=== PATIENT | female | born 1945 | race Caucasian/White ===

== ENCOUNTER 2020-12-14 08:38 | Inpatient (IN) ==
[2020-12-14] MEDS ORDERED: PROCHLORPERAZINE 10 MG/2 ML VIAL IV ONE (08:51)
[2020-12-14] MEDS ORDERED: 0.9 % SODIUM CHLORIDE 1,000 ML IV ONE (08:51)
[2020-12-14] MEDS ORDERED: diphenhydrAMINE 50 MG/ML VIAL IV ONE (08:51)
--- NOTE | 2020-12-14 08:56 | Emergency Department Note ---
Abdominal Pain HPI General Chief Complaint: Abdominal Pain Stated Complaint: Abd pain Time Seen by Provider: 12/14/20 08:41 Source: patient, family, RN notes reviewed and old records reviewed Mode of arrival: ambulatory Limitations: no limitations History of Present Illness HPI Narrative: Narrative: 75-year-old female complains of moderately severe pain starting night prior to arrival. Patient was seen the day prior to arrival with diagnosis of chest pain and a new spinal mass also known. Last night started having diffuse upper abdominal cramping with nausea and vomiting severe throughout the course of the day. No hematemesis coffee-ground emesis no bright red blood per rectum black tarry stools or diarrhea no urinary complaints. MD Complaint: abdominal pain Onset (ago): day(s) (1) Consistency: constant Location: LUQ and RUQ Severity: severe Quality: cramping Radiation: back Migration to: no migration Improves with: vomiting Worsens with: movement Context: other (Seen day prior to arrival diagnosed with chest pain and mass also noted to have a UTI.) Associated symptoms: Reports nausea, vomiting and chills; Denies diarrhea, fever, constipation, dysuria, hematemesis, hematochezia, melena, hematuria, anorexia and syncope Related Data Home Medications Medication Instructions Recorded Confirmed florify probiotic 1 cap PO QDAY 02/13/17 11/13/20 fluticasone propionate 50 1 spray INTRANASAL ONCE PRN 02/13/17 11/13/20 mcg/actuation nasal spray,suspension omega-3 fatty acids 1,000 mg 2,000 mg PO QDAY 02/13/17 11/13/20 capsule acetaminophen 650 mg 650 mg PO Q12H 10/21/19 11/13/20 tablet,extended release Previous Rx's Medication Instructions Recorded buspirone 5 mg tablet 5 mg PO BID PRN #60 tab 04/26/20 diphenoxylate-atropine 2.5 2 tab PO QDAY PRN #90 tab 07/31/20 mg-0.025 mg tablet nitrofurantoin macrocrystal 100 mg 100 mg PO BID #14 cap 11/13/20 capsule rosuvastatin 5 mg tablet 5 mg PO QDAY #30 tab 11/13/20 fenofibrate 54 mg tablet 54 mg PO QDAY #90 tab 11/30/20 levocetirizine 5 mg tablet 5 mg PO QDAY PRN #90 tab 11/30/20 omeprazole 40 mg capsule,delayed 40 mg PO QDAY #30 cap 11/30/20 release gabapentin 300 mg PO QDAY #14 cap 12/13/20 hydrocodone-acetaminophen 1 tab PO TID PRN #10 tab 12/13/20 Allergies Allergy/AdvReac Type Severity Reaction Status Date / Time butorphanol [From Stadol] Allergy Unknown Rash Verified 12/14/20 08:38 meperidine [From Demerol] Allergy Unknown Rash, Verified 12/14/20 08:38 vomiting Sulfa (Sulfonamide Allergy Unknown Rash Verified 12/14/20 08:38 Antibiotics) sulfamethoxazole Allergy Unknown Rash Verified 12/14/20 08:38 [From Septra] trimethoprim [From Septra] Allergy Unknown Rash Verified 12/14/20 08:38 Review of Systems ROS ROS Narrative: Narrative: All systems ED: reviewed and negative except as stated. [facility] Narrative Patient History Narrative: Narrative: Medical/Surgical/Family History All Active Problems (Updated 12/14/20 @ 11:38 by Moise Hoover MD) Chest pain (Acute) Mass of spine (Acute) Acute cholecystitis (Acute) Anemia (Acute) Hair loss (Acute) Close exposure to COVID-19 virus (Acute) Cough (Acute) Medicare annual wellness visit, initial (Acute) Lentigines (Chronic) Melanocytic nevus of trunk (Chronic) Hemangioma (Chronic) Seborrheic keratosis (Chronic) History of tobacco abuse (Chronic) Esophageal pain (Chronic ~2014) Diverticulitis (Chronic ~2015) Diarrhea (Chronic) Stomach cancer (Chronic ~1981) Joint pain (Chronic ~1981) Hyperlipidemia (Chronic ~2006) Hypertension, essential (Chronic) Whooping cough (Chronic) Bronchitis (Chronic) Arthritis (Chronic ~1981) Acid reflux (Chronic ~1996) Medical History Acid reflux (~1996) Anemia Arthritis (~1981) Bronchitis Close exposure to COVID-19 virus Cough Diarrhea Diverticulitis (~2015) Esophageal pain (~2014) Hair loss Hemangioma History of tobacco abuse Hyperlipidemia (~2006) Hypertension, essential Joint pain (~1981) Lentigines Medicare annual wellness visit, initial Melanocytic nevus of trunk Seborrheic keratosis Stomach cancer (~1981) Whooping cough Surgical History H/O colonoscopy 07/2015 H/O Spinal surgery (~1986) 1986 due to ruptured disc H/O: hysterectomy (~1994) 1994 Hx of adenoidectomy (~195) Hx of tonsillectomy (~1949) 1950 Family History Mother Arthritis Grandmother Arthritis Cancer Heart attack Family/Other Diabetes Uncles Grandmother Diabetes Maternal Grandmother Diabetes Paternal Grandfather Heart attack Maternal Grandfather Heart attack Paternal Social History Smoking Status: Former smoker Alcohol Intake Frequency: 0-2 drinks per day Substance Use: does not use Exam Narrative Narrative: Narrative: General Limitations: no limitations General appearance: Present alert, in distress and tearful Head Head: Present atraumatic and normocephalic Eye Eye: Present normal appearance, PERRL and EOMI ENT ENT: Present normal exam and mucous membranes moist Neck Neck: Present normal inspection and full ROM Chest Chest: Present normal inspection; Absent tenderness Respiratory Respiratory: Present normal lung sounds bilaterally; Absent respiratory distress Cardiovascular Cardiovascular: Present regular rate and normal rhythm; Absent systolic murmur Adbominal Abdominal: Present soft, distention, tenderness and hypoactive bowel sounds; Absent guarding, rebound, rigidity, trauma, Conte's sign, tenderness at McBurney's Point, ascites, mass, bruit, pulsatile mass and hernia Extremities Extremities: Present normal inspection and full ROM; Absent tenderness, pedal edema and pretibial edema Back Back: Present normal inspection; Absent CVA tenderness (R) and CVA tenderness (L) Neurological Neurological: Present alert and oriented X3 Psychiatric Psychiatric: Present normal affect and normal mood Skin Skin: Present warm (WNL); Absent rash Course Vital Signs Vital signs: Vital Signs Temperature 98.1 F 12/14/20 08:38 Pulse Rate 98 H 12/14/20 08:38 Respiratory Rate 22 12/14/20 08:38 Blood Pressure 122/94 12/14/20 08:38 Pulse Oximetry (%) 98 12/14/20 08:38 Temperature 98.1 F 12/14/20 08:38 Pulse Rate 97 H 12/14/20 10:23 Respiratory Rate 22 12/14/20 08:38 Blood Pressure 130/77 12/14/20 10:23 Pulse Oximetry (%) 89 L 12/14/20 10:23 [facility] MDM Narrative Medical decision making narrative: Narrative: 75-year-old female with acute onset of abdominal pain night prior to arrival with an elevated white count at 19.6 CT scan shows acute cholecystitis. Discussed patient with Dr. Jose Luis Billy of general surgery who graciously agreed to evaluate patient in the emergency department. Patient received IV fluids IV Zosyn and pain management here in the emergency department. Differential Diagnosis Differential Diagnosis: Cholecystitis pyelonephritis small bowel obstruction and perforation ischem Medical Records Medical records reviewed: Yes I reviewed the patient's medical records. Lab Data Lab results reviewed: Yes I reviewed the patient's lab results. Result diagrams: 12/14/20 08:51 12/14/20 08:51 Labs: Lab Results 12/14/20 12/14/20 Range/Units 08:51 08:51 WBC 19.6 H (4.5-11.0) K/mcL RBC 4.62 (3.59-5.38) M/mcL Hgb 13.3 (11.2-15.7) g/dL Hct 39.8 (34.1-44.9) % MCV 86.1 (80.0-100.0) fL MCH 28.8 (26.0-34.0) pg MCHC 33.4 (31.0-36.0) g/dL RDW 14.4 (11.5-14.5) % Plt Count 225 (140-440) K/mcL MPV 11.6 H (7.4-10.4) fL Neut % (Auto) 91.5 H (38.0-78.0) % Lymph % (Auto) 4.0 L (15.5-49.0) % [place] % (Auto) 4.3 (1.0-12.0) % Eos % (Auto) 0 (0.0-7.0) % Baso % (Auto) 0.2 (0.0-2.0) % Lymph # (Auto) 0.79 L (1.50-4.80) K/mcL [place] # (Auto) 0.84 (0.10-0.90) K/mcL Eos # (Auto) 0 (0.00-0.70) K/mcL Baso # (Auto) 0.04 (0.00-0.30) K/mcL Absolute Neutrophils 17.89 H (1.80-8.00) K/mcL Sodium 135 (133-145) mmol/L Potassium 3.4 (3.3-5.1) mmol/L Chloride 95 L (96-108) mmol/L Carbon Dioxide 25 (22-30) mmol/L Anion Gap 15.0 (8.0-16.0) BUN 23 (8-23) mg/dL Creatinine 0.8 (0.6-1.1) mg/dL GFR Calculation 71 Glucose 146 H (70-105) mg/dL Calcium 9.3 (8.6-10.4) mg/dL Total Bilirubin 0.7 (0.1-1.0) mg/dL AST 140 H (<32) U/L ALT 128 H (<40) U/L Alkaline Phosphatase 108 (39-117) U/L Total Protein 7.7 (5.9-8.4) gm/dL Albumin 4.4 (3.2-5.2) gm/dL Globulin 3.3 (2.2-3.7) gm/dL Albumin/Globulin Ratio 1.3 (1.0-2.3) Lipase 26 (7-60) U/L Radiology Data Radiology results reviewed: Yes I reviewed the patient's radiology results. Radiology results narrative: Abdominal CT IMPRESSION: Acute cholecystitis New onset atelectasis/pneumonia in both lung bases Dr. Hoover was called with the report Interpreted and Authenticated by: Meir Loyd 12/14/20 EKG Data EKG #1: EKG attestation: Yes I reviewed and interpreted this EKG. and Yes There are no EKG findings of acute coronary syndrome EKG shows normal: sinus rhythm Rate: normal (99) Rhythm: NSR [place]/QRS: LAHB/LAFB Q waves: III and aVF Ectopy: PVC Interpretation: nonspecific ST-T wave changes Pulse Oximetry Data Pulse Ox %: 98 Interpretation: 98% on room air within normal limits Discharge Plan Patient/Caregiver Discharge Instructions Pt seen by FEATHER SAWYER/PA only: No Clinical Impression: Acute cholecystitis Patient Disposition: Xfer As Inpt ([facility]) Condition: Fair Follow up with: Julia North DO [Primary Care Provider] - Prescriptions: No Action diphenoxylate-atropine 2.5-0.025 mg tablet 2 tab PO QDAY PRN (Reason: diarrhea) Qty: 90 RF: 3 rosuvastatin [Crestor] 5 mg tablet 5 mg PO QDAY Qty: 30 RF: 2 levocetirizine 5 mg tablet 5 mg PO QDAY PRN (Reason: allergy symptoms) Qty: 90 RF: 1 omeprazole 40 mg capsule,delayed release(DR/EC) 40 mg PO QDAY Qty: 30 RF: 0 fenofibrate 54 mg tablet 54 mg PO QDAY Qty: 90 RF: 1 acetaminophen 650 mg tablet extended release 650 mg PO Q12H RF: 0 fluticasone propionate [Allergy Relief (fluticasone)] 50 mcg/actuation spray,suspension 1 spray INTRANASAL ONCE PRNRF: 0 omega-3 fatty acids [Fish Oil Concentrate] 1,000 mg capsule 2,000 mg PO QDAY RF: 0 florify probiotic 1 cap PO QDAY RF: 0 buspirone 5 mg tablet 5 mg PO BID PRN (Reason: anxiety) Qty: 60 RF: 4 nitrofurantoin macrocrystal 100 mg capsule 100 mg PO BID Qty: 14 RF: 0 gabapentin 300 mg capsule 300 mg PO QDAY Qty: 14 RF: 0 hydrocodone-acetaminophen 5-325 mg tablet 1 tab PO TID PRN (Reason: pain) Qty: 10 RF: 0
[2020-12-14] MEDS: HYDROmorphone 0.5 MG/0.5 ML SYRINGE IV PRN ×3 (09:05→12:45)
[2020-12-14 10:03] LABS: Basophils # (Auto) 0.04 K/mcL (0.00-0.30); Basophils % (Auto) 0.2 % (0.0-2.0); Eosinophils # (Auto) 0 K/mcL (0.00-0.70); Eosinophils % (Auto) 0 % (0.0-7.0); Hematocrit 39.8 % (34.1-44.9); Hemoglobin 13.3 g/dL (11.2-15.7); Lymphocytes # (Auto) 0.79 K/mcL (1.50-4.80); Mean Cell Volume 86.1 fL (80.0-100.0); Mean Corpuscular HGB Conc 33.4 g/dL (31.0-36.0); Mean Platelet Volume 11.6 fL (7.4-10.4); Monocytes # (Auto) 0.84 K/mcL (0.10-0.90); Monocytes % (Auto) 4.3 % (1.0-12.0); Neutrophils % (Auto) 91.5 % (38.0-78.0); Platelet Count 225 K/mcL (140-440); RBC 4.62 M/mcL (3.59-5.38); Red Cell Distribution Width 14.4 % (11.5-14.5); WBC 19.6 K/mcL (4.5-11.0)
[2020-12-14 10:17] LABS: ALT/SGPT 128 U/L (<40); AST/SGOT 140 U/L (<32); Albumin 4.4 gm/dL (3.2-5.2); Albumin/Globulin Ratio 1.3 (1.0-2.3); Alkaline Phosphatase 108 U/L (39-117); Bilirubin,Total 0.7 mg/dL (0.1-1.0); Blood Urea Nitrogen 23 mg/dL (8-23); Calcium 9.3 mg/dL (8.6-10.4); Carbon Dioxide 25 mmol/L (22-30); Chloride 95 mmol/L (96-108); Globulin 3.3 gm/dL (2.2-3.7); Glomerular Filtration Rate 71; Glucose 146 mg/dL (70-105)
--- NOTE | 2020-12-14 10:45 | EKG ---
[facility] Test Date: 2020-12-14 Pat Name: Evonne Viera Department: ED Room: Gender: Female Manufacturing Technologist: CS : 1945 Requested By: Moise Hoover Order Number: [id number] Reading MD: De Howard Measurements Intervals [place] Rate: 99 P: 45 KS: 172 QRS: -41 QRSD: 98 T: 14 QT: 372 QTc: 478 Interpretive Statements SINUS RHYTHM VENTRICULAR PREMATURE COMPLEX LEFT ANTERIOR FASCICULAR BLOCK BORDERLINE T WAVE ABNORMALITIES Unchanged from prior Electronically Signed On 12-14-2020 10:45:03 PDT by De Howard /store/M0/[id number]/ecg/[id number].pdf
[2020-12-14] MEDS ORDERED: PHENYLephrine 1 MG/10 ML SYRINGE (ANEST) ONE (11:33)
[2020-12-14] MEDS ORDERED: POTASSIUM CHLORIDE 40 MEQ/100 ML BAG IV ONE (11:33)
[2020-12-14] MEDS ORDERED: ONDANSETRON 4 MG/2 ML VIAL ONE (11:33)
[2020-12-14] MEDS ORDERED: ROCURONIUM 10 MG/ML ML IV ONE (11:33)
[2020-12-14] MEDS ORDERED: LIDOCAINE HCL/PF 100 MG/5 ML SYRINGE IV ONE (11:33)
[2020-12-14] MEDS ORDERED: fentaNYL 250 MCG/5 ML VIAL IV ONE (11:33)
[2020-12-14] MEDS ORDERED: PIPERACILLIN SODIUM/TAZOBACTAM 3.375 GM in DEXTROSE 5% IN WATER 50 ML IV ONE (11:33)
[2020-12-14] MEDS ORDERED: MAGNESIUM SULFATE 2 GM/50 ML BAG IV ONE (11:33)
[2020-12-14] MEDS ORDERED: KETAMINE 50 MG/ML Syringe (ANEST) IV ONE (11:33)
[2020-12-14] MEDS ORDERED: SUCCINYLCHOLINE 20 MG/ML ML IV ONE (11:33)
[2020-12-14] MEDS ORDERED: PROPOFOL 200 MG/20 ML VIAL IV ONE (11:33)
[2020-12-14] MEDS ORDERED: GLYCOPYRROLATE 0.2 MG/ML VIAL IV ONE (11:33)
[2020-12-14] MEDS ORDERED: DEXAMETHASONE 10 MG/ML VIAL ONE (11:33)
--- NOTE | 2020-12-14 11:35 | Cat Scan Report ---
History: Upper abdominal pain TECHNIQUE: The abdomen was imaged following oral but no intravenous contrast scanning from the diaphragm through the symphysis pubis. Sagittal and coronal reformats were created. The radiation exposure was limited using dose reduction technology. There are patchy infiltrates in both lung bases and inferiorly in the right middle lobe. These have developed since yesterday's chest CT. This may be a combination of pneumonia and atelectasis. Moderate size hiatus hernia is again seen. This remains stable. The liver and spleen are normal size and homogeneous. The gallbladder is mildly distended. The wall does become mildly thickened and inflamed and there stranding of the adjacent fat. The wall measures up to 4 mm. Posteriorly there is a noncalcified stone which is roughly 5 mm in size. The intra and extrahepatic bile ducts are normal in caliber. The inflamed gallbladder is compressing the second portion of the duodenum. The pancreas is normal without evidence for mass or inflammation. The spleen, adrenals and kidneys are normal. There is no kidney stone or evidence of pyelonephritis. Oral contrast has passed through normal stomach and duodenum and jejunum to the mid ileum without obstruction. There is no evidence of inflammatory bowel disease or obstruction. Numerous diverticula are present in the sigmoid colon. There is no evidence of acute diverticulitis. No appendicitis is present. No mass, abscess or ascites are present in the abdomen or pelvis. The uterus and ovaries have been removed. IMPRESSION: Acute cholecystitis New onset atelectasis/pneumonia in both lung bases Dr. Hoover was called with the report Interpreted and Authenticated by: Meir Loyd 12/14/20
--- NOTE | 2020-12-14 13:34 | General Surg History&Physical ---
HPI History of Present Illness Patient information: Note initiated : 12/14/20 at 1:30 pm Service Date, if different from initiated Date: [] Patient: Evonne Viera a 75 y/o F admitted on for Abdominal Pain . Chief Complaint: [] Chief complaint: Acute cholecystitis with cholelithiasis; basilar atelectasis with pneumonit History of present illness: Ms. Viera is a 75 year old F admitted with acute onset of cholecystitis with early sepsis. The patient presented to the emergency room on the evening of 13 December with complaint of left chest and back pain with radiation through to her neck. She also had shortness of breath with nausea and diaphoresis. On evaluation her chest exam and abdominal exam was interpreted as normal. Work-up for acute coronary syndrome was negative. CTA for pulmonary embolus was negative. Her gallbladder was reportedly normal on that evaluation. The patient was discharged home but developed worsening abdominal pain with nausea and vomiting. Her pain was in bilateral upper quadrants worse in the epigastrium and right upper quadrant. She returned to the emergency room with findings of tenderness in the right upper quadrant and epigastrium. Her white blood count is 19,600. Chest x-ray shows bilateral atelectasis with early bilateral basilar pneumonitis. CT shows a distended gallbladder with thickened cordero with pericholecystic fluid and tissue stranding with small dependent gallstones. LFTs shows mild elevation of SGOT and SGPT. Lipase is normal. Alkaline phosphatase and bilirubin are normal. Patient has acute cholecystitis with cholelithiasis with secondary basilar atelectasis and early basilar infiltrates due to pulmonary splinting. She is admitted and will be treated with antibiotics pulmonary toilet hydration with plans for cholecystectomy in the morning. Review of Systems All systems: reviewed and no additional remarkable complaints except as stated PFSH PFS All Active Problems (Updated 12/14/20 @ 13:40 by Ayana Billy MD) Pneumonitis (Acute) Mild bibasilar atelectasis (Acute) Cholecystitis, acute with cholelithiasis (Acute) Chest pain (Acute) Mass of spine (Acute) Acute cholecystitis (Acute) Anemia (Acute) Hair loss (Acute) Close exposure to COVID-19 virus (Acute) Cough (Acute) Medicare annual wellness visit, initial (Acute) Lentigines (Chronic) Melanocytic nevus of trunk (Chronic) Hemangioma (Chronic) Seborrheic keratosis (Chronic) History of tobacco abuse (Chronic) Esophageal pain (Chronic ~2014) Diverticulitis (Chronic ~2015) Diarrhea (Chronic) Stomach cancer (Chronic ~1981) Joint pain (Chronic ~1981) Hyperlipidemia (Chronic ~2006) Hypertension, essential (Chronic) Whooping cough (Chronic) Bronchitis (Chronic) Arthritis (Chronic ~1981) Acid reflux (Chronic ~1996) Medical History Acid reflux (~1996) Anemia Arthritis (~1981) Bronchitis Close exposure to COVID-19 virus Cough Diarrhea Diverticulitis (~2015) Esophageal pain (~2014) Hair loss Hemangioma History of tobacco abuse Hyperlipidemia (~2006) Hypertension, essential Joint pain (~1981) Lentigines Medicare annual wellness visit, initial Melanocytic nevus of trunk Seborrheic keratosis Stomach cancer (~1981) Whooping cough Surgical History H/O colonoscopy 07/2015 H/O Spinal surgery (~1986) 1986 due to ruptured disc H/O: hysterectomy (~1994) 1994 Hx of adenoidectomy (~1951) Hx of tonsillectomy (~1949) 1949 Family History Mother Arthritis Grandmother Arthritis Cancer Heart attack Family/Other Diabetes Uncles Grandmother Diabetes Maternal Grandmother Diabetes Paternal Grandfather Heart attack Maternal Grandfather Heart attack Paternal Social History marital status: other: Children-4 smoking status: Never smoker alcohol intake frequency: 0-2 drinks per day substance use type: does not use MEDS/ALLERGIES Home Medications and Allergies Home Medications Medication Instructions Recorded Confirmed Type florify probiotic 1 cap PO QDAY 02/13/17 11/13/20 History fluticasone propionate 50 1 spray INTRANASAL ONCE PRN 02/13/17 11/13/20 History mcg/actuation nasal spray,suspension omega-3 fatty acids 1,000 mg 2,000 mg PO QDAY 02/13/17 11/13/20 History capsule acetaminophen 650 mg 650 mg PO Q12H 10/21/19 11/13/20 History tablet,extended release buspirone 5 mg tablet 5 mg PO BID PRN #60 tab 04/26/20 11/13/20 Rx diphenoxylate-atropine 2.5 2 tab PO QDAY PRN #90 tab 07/31/20 11/13/20 Rx mg-0.025 mg tablet nitrofurantoin macrocrystal 100 mg 100 mg PO BID #14 cap 11/13/20 11/13/20 Rx capsule rosuvastatin 5 mg tablet 5 mg PO QDAY #30 tab 11/13/20 Rx fenofibrate 54 mg tablet 54 mg PO QDAY #90 tab 11/30/20 Rx levocetirizine 5 mg tablet 5 mg PO QDAY PRN #90 tab 11/30/20 Rx omeprazole 40 mg capsule,delayed 40 mg PO QDAY #30 cap 11/30/20 Rx release gabapentin 300 mg PO QDAY #14 cap 12/13/20 Rx hydrocodone-acetaminophen 1 tab PO TID PRN #10 tab 12/13/20 Rx Allergies Allergy/AdvReac Type Severity Reaction Status Date / Time butorphanol [From Stadol] Allergy Unknown Rash Verified 12/14/20 08:38 meperidine [From Demerol] Allergy Unknown Rash, Verified 12/14/20 08:38 vomiting Sulfa (Sulfonamide Allergy Unknown Rash Verified 12/14/20 08:38 Antibiotics) sulfamethoxazole Allergy Unknown Rash Verified 12/14/20 08:38 [From Septra] trimethoprim [From Septra] Allergy Unknown Rash Verified 12/14/20 08:38 Physical Examination Vital Signs Vital signs: Temp Pulse Resp BP Pulse Ox 98.1 F 102 H 22 128/78 95 12/14/20 08:38 12/14/20 13:00 12/14/20 08:38 12/14/20 13:00 12/14/20 13:00 General physical appearance General physical exam: well developed, well nourished, severe distress and severe pain (Epigastric and right upper quadrant) Eyes Eye exam: PERRL and normal ocular movement; negative icteric ENT ENT exam: normal nares, normal mucosa, no hearing loss, no congestion and dentures (Partial upper dentures) Head Head exam IM: Present atraumatic, normal inspection and normocephalic Neck Neck exam: no masses, trachea midline, no lymphadenopathy and no venous distension Cardiovascular Cardiovascular exam IM: Present normal rate and rhythm, RRR, +S1 and +S2; Absent JVD and tachycardia Respiratory Respiratory exam: normal expansion, normal respiratory effort and clear to aus cultation Abdomen Abdomen: Present tender (Tenderness with guarding and rebound right upper quadrant and epigastrium) and distended (Diffuse abdominal distention) Hernia: Present none Integumentary Integumentary: Present no rash, no growths and no abnormal pigmentation Neurologic Neurologic: Present normal coordination and normal sensation Musculoskeletal Musculoskeletal: Present normal gait and normal posture Psychiatric Psychiatric: Present oriented to time, oriented to person, oriented to place, speech is normal and memory intact Results Labs Result diagrams: 12/14/20 08:51 12/14/20 08:51 Labs: Abnormal lab results 12/14/20 12/14/20 Range/Units 08:51 08:51 WBC 19.6 H (4.5-11.0) K/mcL MPV 11.6 H (7.4-10.4) fL Neut % (Auto) 91.5 H (38.0-78.0) % Lymph % (Auto) 4.0 L (15.5-49.0) % Lymph # (Auto) 0.79 L (1.50-4.80) K/mcL Absolute Neutrophils 17.89 H (1.80-8.00) K/mcL Chloride 95 L (96-108) mmol/L Glucose 146 H (70-105) mg/dL AST 140 H (<32) U/L ALT 128 H (<40) U/L Diabetes panel 12/14/20 Range/Units 08:51 Sodium 135 (133-145) mmol/L Potassium 3.4 (3.3-5.1) mmol/L Chloride 95 L (96-108) mmol/L Carbon Dioxide 25 (22-30) mmol/L BUN 23 (8-23) mg/dL Creatinine 0.8 (0.6-1.1) mg/dL Glucose 146 H (70-105) mg/dL Calcium 9.3 (8.6-10.4) mg/dL AST 140 H (<32) U/L ALT 128 H (<40) U/L Alkaline Phosphatase 108 (39-117) U/L Total Protein 7.7 (5.9-8.4) gm/dL Albumin 4.4 (3.2-5.2) gm/dL Calcium panel 12/14/20 Range/Units 08:51 Calcium 9.3 (8.6-10.4) mg/dL Albumin 4.4 (3.2-5.2) gm/dL Pituitary panel 12/14/20 Range/Units 08:51 Sodium 135 (133-145) mmol/L Potassium 3.4 (3.3-5.1) mmol/L Chloride 95 L (96-108) mmol/L Carbon Dioxide 25 (22-30) mmol/L BUN 23 (8-23) mg/dL Creatinine 0.8 (0.6-1.1) mg/dL Glucose 146 H (70-105) mg/dL Calcium 9.3 (8.6-10.4) mg/dL Adrenal panel 12/14/20 Range/Units 08:51 Sodium 135 (133-145) mmol/L Potassium 3.4 (3.3-5.1) mmol/L Chloride 95 L (96-108) mmol/L Carbon Dioxide 25 (22-30) mmol/L BUN 23 (8-23) mg/dL Creatinine 0.8 (0.6-1.1) mg/dL Glucose 146 H (70-105) mg/dL Calcium 9.3 (8.6-10.4) mg/dL Total Bilirubin 0.7 (0.1-1.0) mg/dL AST 140 H (<32) U/L ALT 128 H (<40) U/L Alkaline Phosphatase 108 (39-117) U/L Total Protein 7.7 (5.9-8.4) gm/dL Albumin 4.4 (3.2-5.2) gm/dL All other labs normal. A/P Assessment and plan (1) Cholecystitis, acute with cholelithiasis: Status: Acute (2) Mild bibasilar atelectasis: Status: Acute (3) Pneumonitis: Status: Acute (4) Acid reflux: Status: Chronic Qualifiers: Esophagitis presence: without esophagitis Qualified Code(s): K21.9 - Gastro-esophageal reflux disease without esophagitis Narrative A/P Narrative: IV hydration DuoNebs every 4 hours Zosyn 3.375 g IV every 6 hours Inspira care every 2 hours while awake Follow-up CBC and inpatient panel in the morning Consent for laparoscopic cholecystectomy in the morning Time Spent With Patient Time: Total time spent is greater than 50% in coordination of care (as documented) at patient's floor/unit and/or counseling patient:
[2020-12-14] MEDS ORDERED: ONDANSETRON 4 MG/2 ML VIAL IV PRN (14:14)
[2020-12-14] MEDS: IPRATROPIUM/ALBUTEROL 3 ML AMPUL.NEB NEB SCH ×3 (14:57→23:06)
[2020-12-14] MEDS: oxyCODONE HCL 5 MG TABLET PO PRN ×2 (15:49→20:38)
[2020-12-14] MEDS: 0.9 % SODIUM CHLORIDE 10 ML SYRINGE IV SCH ×2 (16:02→20:39)
[2020-12-14] MEDS: 0.9 % SODIUM CHLORIDE 1,000 ML IV SCH (16:02)
[2020-12-14] MEDS ORDERED: SCOPOLAMINE 1 PATCH PATCH TOPICAL PRN (17:19)
[2020-12-14] MEDS ORDERED: IPRATROPIUM/ALBUTEROL 3 ML AMPUL.NEB NEB PRN (17:19)
[2020-12-14] MEDS ORDERED: fentaNYL 100 MCG/2 ML VIAL IV PRN (17:30)
[2020-12-14] MEDS: PIPERACILLIN SODIUM/TAZOBACTAM 3.375 GM in DEXTROSE 5% IN WATER 50 ML IV SCH ×2 (18:31→23:25)
[2020-12-14] MEDS: DOCUSATE SODIUM 100 MG CAPSULE PO SCH (20:39)
[2020-12-14] MEDS ORDERED: SENNOSIDES 1 TABLET PO SCH (21:00)
[2020-12-14 22:10] LABS: Appearance,Urine HAZY (Clear); Bilirubin,Urine Negative (Negative); Color,Urine AMBER; Culture Indicated,Urine No; Glucose,Urine (UA) 50 mg/dL (Negative); Ketones,Urine Negative (Negative); Leukocyte Esterase,Urine Negative /ug (Negative); Nitrate,Urine Negative (Negative); Protein,Urine Negative (Negative); Specific Gravity,Urine 1.025 (1.000-1.035); Urine Blood Negative (Negative)
[2020-12-15] MEDS: oxyCODONE HCL 5 MG TABLET PO PRN ×3 (00:40→20:29)
[2020-12-15] MEDS: 0.9 % SODIUM CHLORIDE 1,000 ML IV SCH ×5 (00:43→23:33)
[2020-12-15] MEDS: IPRATROPIUM/ALBUTEROL 3 ML AMPUL.NEB NEB SCH ×6 (03:25→22:30)
[2020-12-15] MEDS: PIPERACILLIN SODIUM/TAZOBACTAM 3.375 GM in DEXTROSE 5% IN WATER 50 ML IV SCH ×3 (05:19→17:34)
[2020-12-15] MEDS: 0.9 % SODIUM CHLORIDE 10 ML SYRINGE IV SCH ×3 (05:20→20:29)
[2020-12-15] MEDS ORDERED: PANTOPRAZOLE 40 MG TABLET PO SCH (07:30)
[2020-12-15] MEDS: DOCUSATE SODIUM 100 MG CAPSULE PO SCH ×2 (08:26→20:29)
[2020-12-15 08:37] LABS: ALT/SGPT 119 U/L (<40); AST/SGOT 81 U/L (<32); Albumin 3.2 gm/dL (3.2-5.2); Alkaline Phosphatase 111 U/L (39-117); Bilirubin,Direct 1.4 mg/dL (<0.3); Bilirubin,Total 1.9 mg/dL (0.1-1.0); Blood Urea Nitrogen 28 mg/dL (8-23); Calcium 8.5 mg/dL (8.6-10.4); Carbon Dioxide 22 mmol/L (22-30); Chloride 101 mmol/L (96-108); Globulin 3.1 gm/dL (2.2-3.7); Glomerular Filtration Rate 84; Glucose 146 mg/dL (70-105); Lactate Dehydrogenase 215 U/L (135-225); Triglycerides 77 mg/dL (<150)
[2020-12-15 08:47] LABS: Hematocrit 35.5 % (34.1-44.9); Hemoglobin 11.3 g/dL (11.2-15.7); Mean Cell Volume 88.1 fL (80.0-100.0); Mean Corpuscular HGB Conc 31.8 g/dL (31.0-36.0); Mean Platelet Volume 11.4 fL (7.4-10.4); Platelet Count 203 K/mcL (140-440); RBC 4.03 M/mcL (3.59-5.38); Red Cell Distribution Width 14.7 % (11.5-14.5)
[2020-12-15] MEDS ORDERED: POTASSIUM CHLORIDE 40 MEQ in DEXTROSE 5% IN WATER 500 ML IV ONE (09:14)
[2020-12-15 09:43] LABS: Band Neutrophils % 6 % (0-10); Lymphocytes % 5 % (15-49); Monocytes % (Manual) 6 % (1-12); Platelet Estimate NORMAL (Normal); RBC Morphology NORMAL (Normal); Reactive Lymphocytes 2 % (0-2); Segmented Neutrophils % 81 % (38-78)
[2020-12-15] MEDS ORDERED: fentaNYL 100 MCG/2 ML VIAL IV PRN (12:25)
[2020-12-15] MEDS ORDERED: METHOCARBAMOL 1,000 MG/10 ML VIAL IV PRN (12:25)
[2020-12-15] MEDS ORDERED: NALOXONE HCL 0.4 MG/ML VIAL IV PRN (12:25)
[2020-12-15] MEDS ORDERED: IPRATROPIUM/ALBUTEROL 3 ML AMPUL.NEB NEB PRN (12:25)
[2020-12-15] MEDS ORDERED: LABETALOL 5 MG/ML ML IV PRN (12:25)
[2020-12-15] MEDS ORDERED: METOPROLOL TARTRATE 5 MG/5 ML VIAL IV PRN (12:25)
[2020-12-15] MEDS ORDERED: ACETAMINOPHEN 1,000 MG/100 ML BAG IV ONE (12:25)
[2020-12-15] MEDS ORDERED: LACTATED RINGERS 250 ML IV PRN (12:25)
[2020-12-15] MEDS ORDERED: LACTATED RINGERS 1,000 ML IV SCH (12:30)
--- NOTE | 2020-12-15 12:33 | Brief Operative Note ---
Brief Operative Note Date of procedure: 12/15/20 Pre-op diagnosis: ACUTE CHOLECYSTITIS WITH CHOLELITHIASIS Post-op diagnosis: other (ACUTE GANGRENOUS CHOLECYSTITIS WITH CHOLELITHIASIS) Procedure: LAPAROSCOPIC CHOLECYSTECTOMY Grafts/Implants: No (SONYA DRAIN #10 X1) Anesthesia: GETA Findings: ACUTE SEVERE GANGRENOUS CHOLECYSTITIS WITH CHOLELITHIASIS Complications: none Surgeon: Ayana Billy Estimated blood loss (cc): 20 Specimens Removed/Pathology: other (GALLBLADDER) Condition: stable Disposition: PACU
[2020-12-15] MEDS ORDERED: ONDANSETRON 4 MG/2 ML VIAL IV PRN (14:03)
[2020-12-15] MEDS ORDERED: SCOPOLAMINE 1 PATCH PATCH TOPICAL PRN (14:03)
[2020-12-15] MEDS ORDERED: busPIRone 5 MG TABLET PO PRN (14:10)
[2020-12-15] MEDS: SENNOSIDES 1 TABLET PO SCH (20:29)
[2020-12-15] MEDS: fentaNYL 100 MCG/2 ML VIAL IV PRN (21:27)
[2020-12-16] MEDS: PIPERACILLIN SODIUM/TAZOBACTAM 3.375 GM in DEXTROSE 5% IN WATER 50 ML IV SCH ×5 (00:02→23:55)
[2020-12-16] MEDS: oxyCODONE HCL 5 MG TABLET PO PRN ×3 (00:28→18:34)
[2020-12-16] MEDS: IPRATROPIUM/ALBUTEROL 3 ML AMPUL.NEB NEB SCH ×5 (03:34→18:48)
[2020-12-16] MEDS: 0.9 % SODIUM CHLORIDE 10 ML SYRINGE IV SCH ×3 (05:24→21:08)
[2020-12-16] MEDS: 0.9 % SODIUM CHLORIDE 1,000 ML IV SCH ×3 (06:17→11:55)
[2020-12-16] MEDS: GABAPENTIN 300 MG CAPSULE PO SCH (07:19)
[2020-12-16] MEDS: PANTOPRAZOLE 40 MG TABLET PO SCH (07:19)
[2020-12-16] MEDS: DOCUSATE SODIUM 100 MG CAPSULE PO SCH ×2 (07:20→21:08)
--- NOTE | 2020-12-16 11:44 | General Surgery Progress Note ---
SUBJECTIVE Subjective Patient information: Note initiated : 12/16/20 at 11:40 am Service Date, if different from initiated Date: [] Patient: Evonne Viera 75 y/o F admitted on 12/14/20 for Abdominal Pain . Chief Complaint: [] Principal diagnosis: Acute cholecystitis Interval history: .Patient is doing well she states that she has much less discomfort. She denies nausea. She has been afebrile. White blood count 15,000, hemoglobin 11.3, potassium 3, phosphorus 2, creatinine 1.7, BUN 28. Constitutional Vitals: Vital Signs Temp Pulse Resp BP Pulse Ox 97.5 F 93 H 16 120/82 94 12/16/20 07:00 12/16/20 11:14 12/16/20 11:14 12/16/20 07:00 12/16/20 11:14 Period Temp Pulse Resp BP Sys/Joe Pulse Ox Last 24 Hr 97.5 F-99.9 F 65-100 13-29 93-142/65-88 77-96 Intake and Output 12/15/20 12/16/20 12/16/20 21:59 05:59 13:59 Intake Total 1690 1400 1200 Output Total 1915 465 650 Balance -225 935 550 Weight 176 lb 8 oz Intake & Output: Intake & Output 12/15/20 12/16/20 12/16/20 21:59 05:59 13:59 Intake Total 1690 1400 1200 Output Total 1915 465 650 Balance -225 935 550 Weight 176 lb 8 oz Intake: IV 1570 1040 1050 Sodium Chloride 0.9% 1,000 ml @ 4647 104 5499 125 mls/hr IV .Q8H [facility] Rx#: [id number] Zosyn 3.375 gm In Dextrose 5% 50 50 50 in Water 50 ml @ 100 mls/hr IV Q6H [facility] Rx#:[id number] Potassium Chloride 40 Meq In 520 Dextrose 5% in Water 500 ml @ 130 mls/hr IV ONCE ONE Rx#: [id number] Oral 120 360 150 Output: Drainage 65 Right Abdomen 65 Drainage 90 50 Right Abdomen 90 50 Void Amount 1825 400 600 Other: Meal Breakfast Percent of Meal Consumed 50% Feeding Ability Independent Urine Appearance Clear Clear Clear Urine Color Light Charleen Light Charleen Dark Yellow Urine Odor Normal Neck Neck exam: Present full ROM and normal inspection; Absent lymphadenopathy Respiratory Respiratory exam: Present normal respiratory exam and CTAB; Absent rales, rhonchi and wheezes Cardiovascular Cardiovascular exam: Present normal rate and rhythm, RRR, +S1 and +S2; Absent JVD GI/Abdominal GI/Abdominal exam: Present normal bowel sounds, soft, distended (Mild distention) and tenderness (Tenderness only around port sites) Extremities Exam Extremities exam: Present full ROM, normal inspection and neurovascular intact; Absent calf tenderness Neurological Exam Neurological exam: Present alert, normal gait, oriented X3 and reflexes normal Psychiatric Psychiatric exam: Present normal affect and normal mood A/P Assessment and plan (1) Cholecystitis, acute with cholelithiasis: Status: Acute (2) Mild bibasilar atelectasis: Status: Acute (3) Pneumonitis: Status: Acute (4) Acid reflux: Status: Chronic Qualifiers: Esophagitis presence: without esophagitis Qualified Code(s): K21.9 - Gastro-esophageal reflux disease without esophagitis Narrative A/P Narrative: Chest x-ray in the morning Decrease IV to 75 cc/hr Potassium phosphate rider IV Time Spent With Patient Time: Total time spent is greater than 50% in coordination of care (as documented) at patient's floor/unit and/or counseling patient:
[2020-12-16] MEDS: POTASSIUM PHOSPHATE 40 MEQ in DEXTROSE 5% IN WATER 500 ML IV SCH ×2 (13:08→18:35)
[2020-12-16] MEDS: fentaNYL 100 MCG/2 ML VIAL IV PRN (21:07)
[2020-12-16] MEDS: SENNOSIDES 1 TABLET PO SCH (21:08)
[2020-12-17] MEDS: IPRATROPIUM/ALBUTEROL 3 ML AMPUL.NEB NEB SCH ×4 (00:07→10:49)
[2020-12-17] MEDS: 0.9 % SODIUM CHLORIDE 1,000 ML IV SCH ×3 (03:20→13:26)
[2020-12-17] MEDS: 0.9 % SODIUM CHLORIDE 10 ML SYRINGE IV SCH ×2 (05:11→12:13)
[2020-12-17] MEDS: PIPERACILLIN SODIUM/TAZOBACTAM 3.375 GM in DEXTROSE 5% IN WATER 50 ML IV SCH ×2 (05:19→12:13)
[2020-12-17] MEDS: PANTOPRAZOLE 40 MG TABLET PO SCH (07:23)
[2020-12-17] MEDS: GABAPENTIN 300 MG CAPSULE PO SCH (07:23)
[2020-12-17] MEDS: DOCUSATE SODIUM 100 MG CAPSULE PO SCH (07:23)
--- NOTE | 2020-12-17 09:27 | XRay Report ---
HISTORY: Follow-up pneumonia, abdominal pain FINDINGS: Increasing consolidation is developing in both lower lobes. Superimposed upon this are small bilateral pleural effusions. These have become worse since the prior chest x-ray and CT done on 12/13/20. The mid and upper lung bee are clear. The hiatus hernia has diminished in size since the prior exam. Heart size is normal. There is no congestive heart failure. Arthritis is seen in both shoulders. IMPRESSION: Increasing atelectasis or pneumonia in both lower lobes with superimposed small pleural effusions Interpreted and Authenticated by: Meir Loyd 12/17/20
[2020-12-17 09:40] LABS: Basophils # (Auto) 0.02 K/mcL (0.00-0.30); Basophils % (Auto) 0.2 % (0.0-2.0); Eosinophils # (Auto) 0.13 K/mcL (0.00-0.70); Eosinophils % (Auto) 1.5 % (0.0-7.0); Hematocrit 33.4 % (34.1-44.9); Hemoglobin 10.9 g/dL (11.2-15.7); Lymphocytes # (Auto) 0.62 K/mcL (1.50-4.80); Lymphocytes % (Auto) 7.3 % (15.5-49.0); Mean Cell Volume 88.6 fL (80.0-100.0); Mean Corpuscular HGB Conc 32.6 g/dL (31.0-36.0); Mean Platelet Volume 10.5 fL (7.4-10.4); Monocytes # (Auto) 0.41 K/mcL (0.10-0.90); Monocytes % (Auto) 4.8 % (1.0-12.0); Neutrophils % (Auto) 86.2 % (38.0-78.0); Platelet Count 248 K/mcL (140-440); RBC 3.77 M/mcL (3.59-5.38); Red Cell Distribution Width 14.6 % (11.5-14.5); WBC 8.5 K/mcL (4.5-11.0)
--- NOTE | 2020-12-17 13:15 | Discharge Summary ---
Discharge Provider Provider Patient information: Note initiated : 12/17/20 at 1:06 pm Service Date, if different from initiated Date: [] Patient: Evonne Viera 75 y/o F admitted on 12/14/20 for Abdominal Pain . Chief Complaint: [] Date of admission: 12/14/20 13:58 Discharge date: 12/17/20 Primary care physician: Julia North DO Admitting clinician: Ayana Billy Attending physician on admission: Ayana Billy Consults: 12/14/20 11:33 Consult to Physician [CONS] Stat Comment: Consulting Provider: Ayana Billy Reason For Exam: Physician to Consult Attending physician on discharge: Ayana Billy Discharging clinician: Ayana Billy COURSE Hospital Course Hospital course: 75-year-old female with 2-day history of initially chest pain and then severe epigastric and right upper quadrant pain. She was initially evaluated in the emergency room for cardiac ischemia but this was negative. She was treated with analgesics and antiemetics and her symptoms improved. She was discharged home but developed recurrent severe pain in both upper quadrants and epigastrium. She developed nausea and vomiting. She represented to the emergency room with findings of white count of 19,[address] evidence of acute cholecystitis with cholelithiasis. She was admitted and treated with IV antibiotics. She underwent laparoscopic cholecystectomy on 15 December 2020. She was found to have acute gangrenous cholecystitis with empyema of the gallbladder. Post procedure her white count initially came down to 15,000 and is now normal at 8500. Because of the acute severe patient in her upper abdomen the patient developed atelectasis and early pneumonitis and effusion in her right lung. Post procedure this is significantly improved though she still has small bibasilar atelectasis and small effusion. She has no respiratory symptoms and she no longer has splinting. Patient is clinically stable and will be discharged home with plans for follow-up chest x-ray and office evaluation on of next week. Discharge diagnosis: Acute gangrenous cholecystitis with cholelithiasis Secondary discharge diagnosis: Bibasilar atelectasis with effusion Right basilar pneumonitis History of hypertension Gastroesophageal reflux disease Reason for admission: Acute cholecystitis with cholelithiasis Procedures: Laparoscopic cholecystectomy Pertinent studies/significant findings: CT of abdomen and pelvis CTA of chest Complications: None Time Spent with Patient Time attestation: Total time spent providing and/or coordinating discharge services: Physical Examination Vital Signs Vital signs: Temp Pulse Resp BP Pulse Ox 99.4 F H 80 20 149/91 92 12/17/20 12:00 12/17/20 10:57 12/17/20 12:00 12/17/20 12:00 12/17/20 12:00 General physical appearance General physical exam: well developed, well nourished, no distress and no pain Eyes Eye exam: PERRL and normal ocular movement; negative icteric ENT ENT exam: normal nares, normal mucosa, no hearing loss, no congestion and dentures (Partial upper dentures) Neck Neck exam: no masses, no bruits, trachea midline, no lymphadenopathy and no venous distension Cardiovascular Cardiovascular exam IM: Present normal rate and rhythm, +S1 and +S2; Absent JVD Respiratory Respiratory exam: normal expansion, normal respiratory effort and clear to auscultation Abdomen Abdomen: Present soft, tender (Mild tenderness around port sites), bowel sounds and surgical scars (GERMAIN with serous drainage) Integumentary Integumentary: Present no rash, no growths and no abnormal pigmentation Neurologic Neurologic: Present normal coordination and normal sensation Musculoskeletal Musculoskeletal: Present normal gait and normal posture Psychiatric Psychiatric: Present oriented to time, oriented to person, oriented to place, speech is normal and memory intact Discharge Plan Patient/Caregiver Discharge Instructions Activity: increase activity as tolerated Diet: Regular Diet and Low Fat Prescriptions: New levofloxacin [levofloxacin] 750 MG tablet 750 mg PO DAILY Qty: 10 RF: 0 Continued diphenoxylate-atropine 2.5-0.025 mg tablet 2 tab PO QDAY PRN (Reason: diarrhea) Qty: 90 RF: 3 rosuvastatin [Crestor] 5 mg tablet 5 mg PO QDAY Qty: 30 RF: 2 levocetirizine 5 mg tablet 5 mg PO QDAY PRN (Reason: allergy symptoms) Qty: 90 RF: 1 omeprazole 40 mg capsule,delayed release(DR/EC) 40 mg PO QDAY Qty: 30 RF: 0 fenofibrate 54 mg tablet 54 mg PO QDAY Qty: 90 RF: 1 acetaminophen 650 mg tablet extended release 650 mg PO Q12H RF: 0 fluticasone propionate [Allergy Relief (fluticasone)] 50 mcg/actuation spray,suspension 1 spray INTRANASAL ONCE PRN (Reason: allergies) RF: 0 omega-3 fatty acids [Fish Oil Concentrate] 1,000 mg capsule 2,000 mg PO QDAY RF: 0 florify probiotic 1 cap PO QDAY RF: 0 buspirone 5 mg tablet 5 mg PO BID PRN (Reason: anxiety) Qty: 60 RF: 4 nitrofurantoin macrocrystal 100 mg capsule 100 mg PO BID Qty: 14 RF: 0 gabapentin 300 mg capsule 300 mg PO QDAY Qty: 14 RF: 0 hydrocodone-acetaminophen 5-325 mg tablet 1 tab PO TID PRN (Reason: pain) Qty: 10 RF: 0 Other Ambulatory Orders: XR chest 1V (Routine) Timeframe: [id number] Facility: [facility] - Location: Radiology Ordered By: Ayana Billy Home Oxygen Order (Routine) Location: None Selected Ordered By: Ayana Billy Follow Up Plan Follow up with: Ayana Billy MD [Physician] - (Contact office on Friday for appointment on afternoon) Julia North DO [Primary Care Provider] - Patient Disposition: Home, Self-Care Prognosis: Good Rehab Potential: Good I certify that the patient requires SNF services: No Overall status at discharge: patient is progressing back to baseline Pending Pending Pending: Resuscitation Status Resuscitate (Full Code) Diet Regular Diet Start Sat Dec 16 0800 Albuterol/Ipratropium (Ipratropium/Albuterol 3 Ml Ampul.Neb) 3 ml NEB Q4HRT [facility] Last Admin: 12/17/20 10:49 Dose: 3 ml Documented by: Admin: 12/17/20 06:46 Dose: 3 ml Documented by: Admin: 12/17/20 03:13 Dose: 3 ml Documented by: Admin: 12/17/20 00:07 Dose: 3 ml Documented by: Admin: 12/16/20 18:48 Dose: 3 ml Documented by: Admin: 12/16/20 14:44 Dose: 3 ml Documented by: Admin: 12/16/20 11:13 Dose: 3 ml Documented by: Admin: 12/16/20 07:20 Dose: 3 ml Documented by: LUIS M Admin: 12/16/20 03:34 Dose: 3 ml Documented by: Admin: 12/15/20 22:30 Dose: Not Given Documented by: Admin: 12/15/20 18:50 Dose: Not Given Documented by: Admin: 12/15/20 15:20 Dose: Not Given Documented by: DEUCE Docusate Sodium (Docusate Sodium 100 Mg Capsule) 100 mg PO BID [facility] Last Admin: 12/17/20 07:23 Dose: 100 mg Documented by: LUIS M Admin: 12/16/20 21:08 Dose: Not Given Documented by: Admin: 12/16/20 07:20 Dose: Not Given Documented by: LUIS M Admin: 12/15/20 20:29 Dose: Not Given Documented by: ELIZABETH Fentanyl (Fentanyl 100 Mcg/2 Ml Vial) 25 mcg IV Q2HP PRN; Protocol PRN Reason: Per Pain Protocol Last Admin: 12/16/20 21:07 Dose: 25 mcg Documented by: Admin: 12/15/20 21:27 Dose: 25 mcg Documented by: ELIZABETH Gabapentin (Gabapentin 300 Mg Capsule) 300 mg PO QDAY [facility] Last Admin: 12/17/20 07:23 Dose: 300 mg Documented by: LUIS M Admin: 12/16/20 07:19 Dose: 300 mg Documented by: LUIS M Piperacillin Sod/Tazobactam (Sod 3.375 gm/ Dextrose) 50 mls @ 100 mls/hr IV Q6H [facility]; Protocol Last Admin: 12/17/20 12:13 Dose: 100 mls/hr Documented by: LUIS M Infusion: 12/17/20 06:16 Dose: 0 mls/hr Documented by: LUIS M Admin: 12/17/20 05:19 Dose: 100 mls/hr Documented by: Infusion: 12/17/20 00:25 Dose: 0 mls/hr Documented by: Admin: 12/16/20 23:55 Dose: 100 mls/hr Documented by: Infusion: 12/16/20 18:15 Dose: 0 mls/hr Documented by: Admin: 12/16/20 17:44 Dose: 100 mls/hr Documented by: LUIS M Infusion: 12/16/20 13:05 Dose: 0 mls/hr Documented by: LUIS M Admin: 12/16/20 12:00 Dose: 100 mls/hr Documented by: LUIS M Infusion: 12/16/20 06:17 Dose: 0 mls/hr Documented by: LUIS M Admin: 12/16/20 05:24 Dose: 100 mls/hr Documented by: Infusion: 12/16/20 00:35 Dose: 0 mls/hr Documented by: Admin: 12/16/20 00:02 Dose: 100 mls/hr Documented by: Infusion: 12/15/20 18:05 Dose: 0 mls/hr Documented by: Admin: 12/15/20 17:34 Dose: 100 mls/hr Documented by: KATHLEEN Sodium Chloride (Sodium Chloride 0.9%) 1,000 mls @ 75 mls/hr IV .[id number] [facility] Last Admin: 12/17/20 05:19 Dose: 75 mls/hr Documented by: Admin: 12/17/20 03:20 Dose: Not Given Documented by: Admin: 12/16/20 11:55 Dose: Not Given Documented by: LUIS M Ondansetron HCl (Ondansetron 4 Mg/2 Ml Vial) 4 mg IV Q6HP PRN PRN Reason: Nausea And Vomiting Last Admin: 12/17/20 03:13 Dose: 4 mg Documented by: ELIZABETH Oxycodone HCl (Oxycodone Hcl 5 Mg Tablet) 10 mg PO Q4HP PRN; Protocol PRN Reason: Per Pain Protocol Last Admin: 12/16/20 18:34 Dose: 10 mg Documented by: Admin: 12/16/20 12:02 Dose: 10 mg Documented by: LUIS M Admin: 12/16/20 00:28 Dose: 10 mg Documented by: Admin: 12/15/20 20:29 Dose: 10 mg Documented by: ELIZABETH Pantoprazole Sodium (Pantoprazole 40 Mg Tablet) [facility] Last Admin: 12/17/20 07:23 Dose: 40 mg Documented by: LUIS M Admin: 12/16/20 07:19 Dose: 40 mg Documented by: LUIS M Senna (Sennosides 1 Tablet) 2 tab PO [facility] Last Admin: 12/16/20 21:08 Dose: Not Given Documented by: Admin: 12/15/20 20:29 Dose: Not Given Documented by: ELIZABETH Sodium Chloride (0.9 % Sodium Chloride 10 Ml Syringe) 10 ml IV Q8 [facility] Last Admin: 12/17/20 12:13 Dose: Not Given Documented by: Admin: 12/17/20 05:11 Dose: Not Given Documented by: Admin: 12/16/20 21:08 Dose: Not Given Documented by: Admin: 12/16/20 12:01 Dose: Not Given Documented by: Admin: 12/16/20 05:24 Dose: Not Given Documented by: Admin: 12/15/20 20:29 Dose: Not Given Documented by: ELIZABETH Shift Summary 12/17/20 04:03 Shift Summary by Larry Beth Pt has rested on & off tonight around frequent toileting. ABD pain fairly well controlled w/ IV Fentanyl 25mcg given x1 @ 2100, & Roxicodone 10mg PO given @ 1835. Mod nausea for a brief time - PRN Zofran IV given @ 0315. No BM. No SOB - O2 on @ 3L via N/C. She is up AMB in Rm SBA for lines - gait stable w/o device. She is voiding QS into hat. No skin issues. NS infusing to her LT A/C @ 75ml/hr. GERMAIN RUQ ABD, and 3x lap sites w/ anurag & film dressing. VS - WNL w/ O2. She is A&O x4, calm, pleasant, & cooperative. Initialized on 12/17/20 04:03 - END OF NOTE
--- NOTE | 2020-12-18 13:08 | Surgical Pathology Report ---
Histology Microscopic Diagnosis Specimen A- GALLBLADDER, CHOLECYSTECTOMY: --- NECROTIZING ACUTE AND CHRONIC CHOLECYSTITIS WITH ACUTE SEROSITIS. (DMT) Procedural Impression Acute cholecystitis with cholelithiasis. Gross Description Received in formalin labeled gallbladder, is a purple-graves gallbladder with splotchy green areas. It measures 11 x 5.1 x 2.2 cm. There is a metal clip on the duct. Near the duct there is a 1 x 0.5 cm firmer graves nodule. The specimen contains red viscous fluid. The mucosa is green-graves with splotchy pink areas. The wall is up to 0.3 cm thick. Grossly there are no stones identified. [employer] sections submitted in one cassette. (SCB:sln) Electronically Signed De Waller MD, FCAP Electronically Signed 12/18/2020 13:06
--- NOTE | 2020-12-19 12:43 | Operative Note ---
DATE OF OPERATION: 12/15/2020 PREOPERATIVE DIAGNOSIS: Acute cholecystitis with cholelithiasis. POSTOPERATIVE DIAGNOSIS: Acute gangrenous cholecystitis with cholelithiasis. PROCEDURE: Laparoscopic cholecystectomy. SURGEON: Ayana Billy M.D. FINDINGS: Acute severe gangrenous cholecystitis with cholelithiasis. DESCRIPTION OF PROCEDURE: Under general anesthesia, the patient's abdomen was prepped and draped in a sterile field. Timeout procedure was carried out as per protocol. Supraumbilical midline incision was made. Veress needle was inserted uneventfully. Abdomen was insufflated with 2.5 liters of CO2. A 12 mm port was placed. Laparoscope was placed. Upon placing the laparoscope, there was a moderate amount of bilious fluid surrounding the gallbladder, and the gallbladder was red and blackened throughout. Under videoscopic guidance, a 12 mm port and two 5 mm ports were placed in the right subcostal region. The gallbladder was decompressed with a Weck needle and it aspirated of pure pus. The gallbladder was grasped and positioned. Because of the friability of the wall of the gallbladder, care was taken to dissect the cystic artery and the cystic duct. Cystic duct was dissected back to the gallbladder. Cystic artery was dissected onto the wall of the gallbladder. The cystic duct appeared to be viable, so it was transected using the Endo HEMAL stapler close to the gallbladder, leaving a sizable stump. Cystic artery was clipped with four clips on the wall of the gallbladder and divided. The gallbladder was then from the infrahepatic bed using primarily blunt dissection with occasional electrocautery. Most of the dissection was carried out bluntly. Hemostasis in the bed was achieved with electrocautery. A GERMAIN drain was placed and brought out through the most lateral port site. The drain was positioned in the subhepatic space. Further irrigation was carried out. There was no significant bleeding. There was no evidence of bile leak. CO2 was allowed to escape from the abdomen and the ports were removed. The fascia at the umbilicus was closed with interrupted 0 Vicryl. Skin incisions were closed with anurag. The patient tolerated the procedure well. Tegaderm dressings were placed. She was awakened, transferred to a bed, and taken to the postanesthetic care unit in satisfactory condition. LCS:david Job ID: [id number] Doc ID: [id number] Ayana Billy M.D.
== END 2020-12-17 15:03 | disposition home or self-care (01) | DRG 417 ==
LOC: ED 08:38 → MEDSUR 13:58
PROVIDERS: ADMIT Family Medicine Adult Medicine; ATTEND Family Medicine Adult Medicine